=== PATIENT | female | born 1935 ===

== ENCOUNTER 2021-07-16 04:19 | Inpatient (IN) | payer BC, OTHER ==
[~2021-07-16] VITALS: Ht 157.4 cm; Wt 75.8 kg
[2021-07-16] VITALS (8 sets, daily range): BP systolic 109–142; BP diastolic 56–81
[2021-07-16] MEDS ORDERED: meTOprolol 5 MG/5 ML (LOPRESSOR) VIAL IV STA (04:35)
--- NOTE | 2021-07-16 04:43 | ED Dyspnea ---
General Chief Complaint: Respiratory Problems Stated Complaint: HIGH BP Source of Information: Patient, EMS, Family Exam Limitations: Language Barrier (patient's daughter translating) History of Present Illness Date Seen by Provider: Jul 16, 2021 Time Seen by Provider: 04:22 Initial Comments 85 yo female presenting with EMS due to shortness of breath. She is visiting her daughter and she usually lives in [place]. She has a history of diabetes, high blood pressure, high cholesterol. Daughter denies any hx of heart attack or heart problems and no hx of heart failure or fluid on her lungs. She had gotten up to go to the bathroom and then was feeling more short of breath and had tightness in her chest. EMS was called and they felt she had elevated blood pressure as well as sounded like she had fluid on her lungs. She was wheezing some as well so given breathing treatment and a dose of Lasix 40 mg IV. She was feeling like she was breathing better on arrival to the ED. She has some swelling to her legs bilaterally. She had extended car ride 2 weeks ago to travel down to [place]. Timing/Duration: 1-3 Hours Severity: Moderate Activities at Onset: Activity Prior Episodes/Possible Cause: No Prior Episodes Modifying Factors: Worse With Activity; Improves With Albuterol Nebulizer; Worse With Lying Down; Improves With Oxygen Associated Symptoms: Anxiety, Chest Pain (tightness in chest), Cough (dry), Edema, Fever, Insomnia, Lightheadedness, Loss of Appetite, Pain, Weakness, Wheezing Allergies and Home Medications Allergies Coded Allergies: No Known Drug Allergies (Unverified , 07/16/21) Patient Home Medication List Home Medication List Reviewed: Yes Review of Systems Review of Systems Constitutional: No chills, No fever EENTM: no symptoms reported Respiratory: see HPI, cough (dry cough that started tonight) Cardiovascular: see HPI Gastrointestinal: No nausea, No vomiting Genitourinary: no symptoms reported Musculoskeletal: no symptoms reported Skin: no symptoms reported Psychiatric/Neurological: Anxiety Past Ywlveko-Vllcjb-Usbgpw Hx Patient Social History Tobacco Use?: No Past Medical History Surgery/Hospitalization HX: Hypertension, quh-unpqpgx-zyyrkwofl diabetes, hypercholesterolemia, chronic back pain/muscle spasms Physical Exam Vital Signs Vital Signs - First Documented 07/16/21 04:19 Temp 36.9 Pulse 115 Resp 31 B/P (MAP) 175/88 (117) Pulse Ox 100 O2 Delivery Nasal Cannula O2 Flow Rate 6.00 Capillary Refill : Height, Weight, BMI Height: '" Weight: lbs. oz. 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 Norm as Tested Skin: Normal Color, Warm/Dry Progress/Results/Core Measures Results/Orders Lab Results Laboratory Tests Test 07/16/21 04:32 07/16/21 06:27 07/16/21 07:28 Range/Units White Blood Count 9.5 4.3-11.0 10^3/uL Red Blood Count 3.99 3.80-5.11 10^6/uL Hemoglobin 11.7 11.5-16.0 g/dL Hematocrit 36 35-52 % Mean Corpuscular Volume 90 80-99 fL Mean Corpuscular Hemoglobin 29 25-34 pg Mean Corpuscular Hemoglobin Concent 33 32-36 g/dL Red Cell Distribution Width 13.2 10.0-14.5 % Platelet Count 291 130-400 10^3/uL Mean Platelet Volume 10.1 9.0-12.2 fL Immature Granulocyte % (Auto) 0 % Neutrophils (%) (Auto) 41 L 42-75 % Lymphocytes (%) (Auto) 43 12-44 % Monocytes (%) (Auto) 11 0-12 % Eosinophils (%) (Auto) 4 0-10 % Basophils (%) (Auto) 0 0-10 % Neutrophils # (Auto) 3.9 1.8-7.8 10^3/uL Lymphocytes # (Auto) 4.1 H 1.0-4.0 10^3/uL Monocytes # (Auto) 1.0 0.0-1.0 10^3/uL Eosinophils # (Auto) 0.4 H 0.0-0.3 10^3/uL Basophils # (Auto) 0.0 0.0-0.1 10^3/uL Immature Granulocyte # (Auto) 0.0 0.0-0.1 10^3/uL Prothrombin Time 11.8 L 12.2-14.7 SEC INR Comment 0.8 0.8-1.4 Activated Partial Thromboplast Time 26 24-35 SEC D-Dimer 0.65 H 0.00-0.49 UG/ML Sodium Level 140 135-145 MMOL/L Potassium Level 4.1 3.6-5.0 MMOL/L Chloride Level 103 98-107 MMOL/L Carbon Dioxide Level 21 21-32 MMOL/L Anion Gap 16 H 5-14 MMOL/L Blood Urea Nitrogen 21 H 7-18 MG/DL Creatinine 0.96 0.60-1.30 MG/DL Estimat Glomerular Filtration Rate 58 BUN/Creatinine Ratio 22 Glucose Level 234 H 70-105 MG/DL Calcium Level 9.1 8.5-10.1 MG/DL Corrected Calcium 9.1 8.5-10.1 MG/DL Magnesium Level 1.2 L 1.6-2.4 MG/DL Total Bilirubin 0.3 0.1-1.0 MG/DL Aspartate Amino Transf (AST/SGOT) 22 5-34 U/L Alanine Aminotransferase (ALT/SGPT) 17 0-55 U/L Alkaline Phosphatase 56 40-136 U/L Myoglobin 41.5 10.0-92.0 NG/ML Troponin I < 0.30 0.51 *H <0.30 NG/ML Pro-B-Type Natriuretic Peptide 897.8 H <75.0 PG/ML Total Protein 7.2 6.4-8.2 GM/DL Albumin 4.0 3.2-4.5 GM/DL Urine Color PALE YELLOW Urine Clarity CLEAR Urine pH 6.0 5-9 Urine Specific [place] <=1.005 1.016-1.022 Urine Protein NEGATIVE NEGATIVE Urine Glucose (UA) NEGATIVE NEGATIVE Urine Ketones NEGATIVE NEGATIVE Urine Nitrite NEGATIVE NEGATIVE Urine Bilirubin NEGATIVE NEGATIVE Urine Urobilinogen 0.2 < = 1.0 MG/DL Urine Leukocyte Esterase NEGATIVE NEGATIVE Urine RBC (Auto) NEGATIVE NEGATIVE Urine RBC NONE /HPF Urine WBC NONE /HPF Urine Squamous Epithelial Cells RARE /HPF Urine Crystals NONE /LPF Urine Bacteria NEGATIVE /HPF Urine Casts NONE /LPF Urine Mucus NEGATIVE /LPF Urine Culture Indicated NO My Orders Orders - ENYART,CATHERINE E MD Cbc With Automated Diff (07/16/21 04:34) Magnesium (07/16/21 04:34) Chest 1 View Ap/Pa Only (07/16/21 04:34) Ekg Tracing (07/16/21 04:34) Comprehensive Metabolic Panel (07/16/21 04:34) Myoglobin Serum (07/16/21 04:34) Protime With Inr (07/16/21 04:34) Partial Thromboplastin Time (07/16/21 04:34) O2 (07/16/21 04:34) Monitor-Rhythm Ecg Trace Only (07/16/21 04:34) Ed Iv/Invasive Line Start (07/16/21 04:34) Troponin I Fs (07/16/21 04:34) Probnp Fs (07/16/21 04:34) Ua Culture If Indicated (07/16/21 04:34) Metoprolol Tartrate Injection (Lopressor (07/16/21 04:35) Magnesium 1 Gm/100 Ml Ivpb (Magnesium Sifuentes (07/16/21 05:57) Troponin I Fs (07/16/21 06:30) Fibrin Degradation Products (07/16/21 06:38) Aspirin Chewable Tablet (Baby Aspirin Ch (07/16/21 07:14) Enoxaparin Injection (Lovenox Injectio (07/16/21 07:36) Ct Angio Chest W (07/16/21 07:45) Iohexol Injection (Omnipaque 350 Mg/Ml 1 (07/16/21 07:45) Received Contrast (Hold Metformin- Contr (07/16/21 07:45) Sodium Chloride Flush (Catheter Flush Sy (07/16/21 07:45) Ns (Ivpb) (Sodium Chloride 0.9% Ivpb Bag (07/16/21 07:45) Vital Signs/I&O 07/16/21 04:19 Temp 36.9 Pulse 115 Resp 31 B/P (MAP) 175/88 (117) Pulse Ox 100 O2 Delivery Nasal Cannula O2 Flow Rate 6.00 Progress Progress Note #1: Progress Note Order electrocardiogram, chest x-ray, labs including cardiac enzymes. For her hypertension and tachycardia give a single dose of metoprolol 5 mg IV x1. Progress Note #2: Progress Note Labs show stable CBC without acute significant abnormality. ECG shows sinus tachycardia with Left bundle branch block. Chemistry shows elevated proBNP with normal Troponin. She does have low mag at 1.2 so will supplement this. It appears her CXR shows increased pulmonary vascular congestion on my review of her 1 view CXR. She does not have an acute infiltrate. With report of sudden onset will obtain CT scan of chest with IV contrast to eval for PE and plan to repeat Troponin to ensure it is not increasing. If CT angiogram of chest negative and repeat Troponin not changing as well as pt remaining stable then she may need to be started on diuretic and eventually have echocardiogram to ealuate EF. if finding for PE or has elevating troponin then she would need admit for cardiology eval and further treatment prior to discharge home. Progress Note #3: Progress Note After ordering the CT angio and discussing with the patient and family the findings and plan, the CT scanner was having technical difficulties and the scan was not able to be performed immediately. IT was contacted. In the meantime a D-dimer was added to help screen for a DVT or PE. Also the repeat troponin was in process as well. Progress Note #4: Time: 06:55 Progress Note Repeat troponin came back elevated at 0.51. The D-dimer came back elevated at 0.65. Updated the patient and family and advised them that she would need to be admitted for further evaluation and treatment. With those enzymes going up it looks like she had some findings for heart damage and possible blockages with her heart. She also was having some findings for some heart failure and an echocardiogram or ultrasound of her heart could be performed to help evaluate that further. We will order a dose of aspirin and check with the hospitalist a nd cardiology about admission and further orders. [address] Rey and he accepted the patient for admission to the hospitalist service. He requested a cardiac stepdown bed and to check with Dr. Fagan with cardiology about management of the non-STEMI and left bundle branch block. [address] Fagan for cardiology and he advised administering a 1 mg/kg dose of Lovenox for therapeutic anticoagulation while pending transfer and further evaluation with [place]. Patient is continuing to receive magnesium supplementation since her magnesium was down to 1.2. Initial ECG Impression Date: Jul 16, 2021 Initial ECG Impression Time: 04:29 Initial ECG Rate: 108 Initial ECG Rhythm: S.Tach Initial ECG Comparisson: No Previous ECG Available Comment Sinus tachycardia with a heart rate of 108 bpm. RI interval 136 ms. Atrial premature complexes. Left bundle branch block. No acute ST elevation. QT interval 359 ms with a QTc interval 481 ms. No prior tracing available for comparison. Diagnostic Imaging Diagonstic Imaging: Xray Plain Films/CT/US/NM/MRI: chest Comments On my review of her 1 view chest x-ray she has increased pulmonary vascular con gestion without infiltrate. There is also cardiomegaly. [facility] [place], [place] NAME: YAN PETE [facility] REC#: [id number] PT STATUS: REG ER : 1935 PHYSICIAN: CATHERINE ONEILL MD ADMIT DATE: 07/16/21/ER FS Signed Date of Exam:07/16/21 CHEST 1 VIEW AP/PA ONLY EXAMINATION: Chest 1 view HISTORY: Shortness of breath. Hypertension. COMPARISON: None available. FINDINGS: There is cardiomegaly with central pulmonary vascular congestion. Patchy opacities are seen in the bilateral lung bases. No large pleural effusion or pneumothorax. No acute osseous abnormalities. IMPRESSION: 1. Cardiomegaly with central pulmonary vascular congestion. 2. Patchy bibasilar opacities which may represent atelectasis, edema, and/or infection. Dictated by: Dictated on workstation # [id number] Dict: 07/16/2113 Trans: 07/16/2114 [id number] Interpreted by: MACK HEAD DO Electronically signed by: MACK HEAD DO 07/16/21 0614 Reviewed: Reviewed by Me Departure Communication (Admissions) Time/Spoke to Admitting Phy: 07:[address] Rey and he accepted for the hospitalist service for non-S DONALD to the cardiac stepdown unit. He did request cardiology be consulted for the patient as well. Time/Spoke to Consulting Phy: 07:[address] Fagan for cardiology and he was made aware of the admit to the hospitalist service. He requested Lovenox at a therapeutic 1 mg/kg dose while being transferred and was in agreement with the aspirin that she had already been dosed with. Impression Primary Impression: Non-ST elevated myocardial infarction Additional Impressions: Dyspnea Qualified Codes: R06.02 - Shortness of breath Hypertension Qualified Codes: I10 - Essential (primary) hypertension Left bundle branch block (LBBB) on electrocardiogram Hypomagnesemia Elevated d-dimer Disposition: 30 STILL A PATIENT Condition: Stable Admissions Decision to Admit Reason: Admit from ER (General) Decision to Admit/Date: Jul 16, 2021 Time/Decision to Admit Time: 07:25 Departure-Patient Inst. Referrals: NO,LOCAL PHYSICIAN (PCP/Family) Primary Care Physician CATHERINE ONEILL MD Jul 16, 2021 04:43
[2021-07-16 04:49] LABS: BASOPHILS % (AUTO) 0 % (0-10); EOSINOPHILS # (AUTO) 0.4 10^3/uL (0.0-0.3); EOSINOPHILS % (AUTO) 4 % (0-10); HEMATOCRIT 36 % (35-52); HEMOGLOBIN 11.7 g/dL (11.5-16.0); LYMPHOCYTES # (AUTO) 4.1 10^3/uL (1.0-4.0); LYMPHOCYTES % (AUTO) 43 % (12-44); MEAN CORPUSCULAR HEMOGLOBIN 29 pg (25-34); MEAN CORPUSCULAR HGB CONC 33 g/dL (32-36); MEAN CORPUSCULAR VOLUME 90 fL (80-99); MEAN PLATELET VOLUME 10.1 fL (9.0-12.2); MONOCYTES % (AUTO) 11 % (0-12); NEUTROPHILS # (AUTO) 3.9 10^3/uL (1.8-7.8); NEUTROPHILS % (AUTO) 41 % (42-75); PLATELET COUNT 291 10^3/uL (130-400); WHITE BLOOD COUNT 9.5 10^3/uL (4.3-11.0)
[2021-07-16 04:53] LABS: INR 0.8 (0.8-1.4); PROTHROMBIN TIME PATIENT 11.8 SEC (12.2-14.7)
[2021-07-16 05:15] LABS: BILIRUBIN,TOTAL 0.3 MG/DL (0.1-1.0); CALCIUM 9.1 MG/DL (8.5-10.1); CREATININE SERUM 0.96 MG/DL (0.60-1.30); MAGNESIUM 1.2 MG/DL (1.6-2.4); POTASSIUM 4.1 MMOL/L (3.6-5.0)
[2021-07-16 05:16] LABS: TOTAL PROTEIN 7.2 GM/DL (6.4-8.2)
[2021-07-16] MEDS ORDERED: MAGNESIUM 1 GM/100 ML IVPB 100 ML IV STA (05:57)
--- NOTE | 2021-07-16 06:15 | Diagnostic Imaging Report ---
EXAMINATION: Chest 1 view HISTORY: Shortness of breath. Hypertension. COMPARISON: None available. FINDINGS: There is cardiomegaly with central pulmonary vascular congestion. Patchy opacities are seen in the bilateral lung bases. No large pleural effusion or pneumothorax. No acute osseous abnormalities. IMPRESSION: 1. Cardiomegaly with central pulmonary vascular congestion. 2. Patchy bibasilar opacities which may represent atelectasis, edema, and/or infection. Dictated by: Dictated on workstation # [id number]
[2021-07-16] MEDS ORDERED: ASPIRIN 81 MG CHEW (CHILDREN'S ASA) PO STA (07:14)
[2021-07-16 07:33] LABS: BILIRUBIN,URINE NEGATIVE (NEGATIVE); CLARITY,URINE CLEAR; GLUCOSE, URINE (UA) NEGATIVE (NEGATIVE); KETONES,URINE NEGATIVE (NEGATIVE); LEUKOCYTE ESTERASE ,URINE NEGATIVE (NEGATIVE); NITRITE,URINE NEGATIVE (NEGATIVE); PROTEIN,URINE NEGATIVE (NEGATIVE)
[2021-07-16] MEDS ORDERED: ENOXAPARIN 80 MG/0.8 ML (LOVENOX) SYR SC STA (07:36)
[2021-07-16 07:37] LABS: COLOR,URINE PALE YELLOW
[2021-07-16 07:38] LABS: BACTERIA,URINE NEGATIVE /HPF; SQUAMOUS EPITHELIAL CELL,UR RARE /HPF
[2021-07-16] MEDS ORDERED: NS 100 ML (IVPB) BAG IV ONE (07:45)
[2021-07-16] MEDS ORDERED: IOHEXOL 350 MG/ML 100 ML (OMNIPAQUE 350) VIAL IV ONE (07:45)
[2021-07-16] MEDS ORDERED: CATHETER FLUSH 10 ML SYR IV PRN ×3 (07:45→13:15)
[2021-07-16] MEDS ORDERED: HOLD METFORMIN - RECEIVED CONTRAST 20 ML VIAL IV SCH (07:45)
--- NOTE | 2021-07-16 08:22 | Diagnostic Imaging Report ---
INDICATION: Shortness of breath and elevated D-dimer. TECHNIQUE: Multiple contiguous axial images were obtained through the chest after uneventful bolus administration of intravenous contrast. 3D reconstructed CTA MIP acquisitions were also performed. Auto Exposure Controls were utilized during the CT exam to meet ALARA standards for radiation dose reduction. There is no prior study for comparison The pulmonary parenchymal vessels are well-opacified with no CT evidence of pulmonary emboli. Thoracic aorta shows no evidence of aneurysm or dissection. There is cardiomegaly. There are no enlarged mediastinal or hilar nodes. There are no enlarged axillary nodes. There is a small right pleural effusion and minimal left pleural effusion. There is some motion artifact in the lung bases. Lung parenchymal windows demonstrated some motion artifact inferiorly. There is no discrete consolidation or mass. IMPRESSION: Cardiomegaly. Small right pleural effusion and minimal left pleural effusion. No CT evidence of pulmonary emboli or acute aortic pathology. Imaging of the lungs is motion limited but no definite pulmonary lesion is seen. Dictated by: Dictated on workstation # [id number]
[2021-07-16] MEDS ORDERED: hydrALAZINE (APESOLINE) 20 MG/ML VIAL IV PRN (10:00)
[2021-07-16] MEDS ORDERED: ENOXAPARIN 80 MG/0.8 ML (LOVENOX) SYR SC SCH ×2 (10:00→20:00)
[2021-07-16] MEDS ORDERED: ONDANSETRON 4 MG/2 ML (SDV) Z0FRAN IVP PRN (10:00)
[2021-07-16] MEDS ORDERED: NITROGLYCERIN 0.4 MG SL TABS BTL 25'S SL PRN (10:00)
[2021-07-16] MEDS ORDERED: morphine INJ 4 MG/ML 1 ML (VIAL/SYRINGE) IV PRN (10:00)
[2021-07-16] MEDS ORDERED: BACLOFEN 10 MG (LIORESAL) TAB PO PRN (10:00)
[2021-07-16] MEDS: CATHETER FLUSH 10 ML SYR IV SCH ×2 (10:55→20:34)
--- NOTE | 2021-07-16 11:53 | Diagnostic Imaging Report ---
PROCEDURE: US Venous Lower Ext Alex. TECHNIQUE: Multiple real-time grayscale images were obtained over the lower extremities in various projections, bilaterally. Additional duplex Doppler and color Doppler images were also obtained. INDICATION: Elevated D-dimer with leg pain. FINDINGS: Color Doppler imaging shows normal blood flow throughout the venous system from the common femoral vein to the ankle bilaterally. Calf compression shows normal augmentation of flow. IMPRESSION: No evidence of venous thrombosis. There is incidentally noted a popliteal cyst on the left measuring approximately 5 x 3 x 2 cm. Dictated by: Dictated on workstation # [id number]
--- NOTE | 2021-07-16 13:02 | Consultation-Cardiology ---
HPI-Cardiology Cardiology Consultation Date of Consultation 07/16/21 Date of Admission Time Seen by Provider: 12:54 Indication: Chest Pain HPI Patient is an 85 year old female with a past medical history of hypertension, diabetes mellitus, and hyperlipidemia who is being admitted from [place] [facility] with a chief complaint of shortness of breath and chest pain. Patient is from [place], [place] but is visiting family in [place]. Patient and her son drove here two weeks ago and were planning on leaving this coming 07/20/21. Patient states that the shortness of breath and chest tightness began around 0230 after she got out of bed to go to the bathroom. She describes the chest tightness as a substernal tightness that didn't radiate. Her dyspnea progressed to the point where she called her daughter who decided to get her to the ER. Daughter checked the BP at home and it was elevated at 160's/100's. Patient denied headache, dizziness, syncopal epsiode, popliteal pain. At [place] ER patient was given Lasix 40mg, breathing treatments, metoprolol, magnesium supplementation, and placed on 6L O2 Nasal Cannula. Patient was given aspirin and Lovenox 1mg/kg every 12 hours upon arrival at [facility]. Patient states her chest tightness is much better and that overall she is feeling much better. Patient is currently on room air. She states she is still having some dyspena but that it is much improved. Chest x-ray shows cardiomegaly with central pulmonary vascular congestion. Chest Thoracic angiogram was negative for pulmonary embolism. Patient's initial troponin was negative, repeat troponin was 0.51, second repeat was 1.296. BNP was 897.8. D-dimer was elevated at 0.65 but peripheral doppler was negative for deep vein thrombosis. Patient had a left bundle branch block on EKG. There is no previous study to compare to. Patient states she has no significant cardiac history and that her chronic conditions are managed by Dr. Matos in [place], [place]. Upon contacting Dr. Matos's office they stated they had no previous EKG studies. Home Medications & Allergies Allergies: Coded Allergies: No Known Drug Allergies (Unverified , 07/16/21) [id number] Hx Patient Social History Have you traveled recently?: No Alcohol Use?: No Review of Systems-General Review of Systems Constitutional: No chills, No fever EENTM: no symptoms reported; No blurred vision, No double vision, No vision loss Respiratory: cough, short of breath Cardiovascular: see HPI, chest pain (during episode, now resolved); No Hx of Intervention, No palpitations, No syncope Gastrointestinal: No heartburn, No nausea, No vomiting Reviewed Test Results Reviewed Test Results Lab Laboratory Tests Test 07/16/21 04:32 07/16/21 06:27 07/16/21 07:28 07/16/21 11:07 Range/Units White Blood Count 9.5 4.3-11.0 10^3/uL Red Blood Count 3.99 3.80-5.11 10^6/uL Hemoglobin 11.7 11.5-16.0 g/dL Hematocrit 36 35-52 % Mean Corpuscular Volume 90 80-99 fL Mean Corpuscular Hemoglobin 29 25-34 pg Mean Corpuscular Hemoglobin Concent 33 32-36 g/dL Red Cell Distribution Width 13.2 10.0-14.5 % Platelet Count 291 130-400 10^3/uL Mean Platelet Volume 10.1 9.0-12.2 fL Immature Granulocyte % (Auto) 0 % Neutrophils (%) (Auto) 41 L 42-75 % Lymphocytes (%) (Auto) 43 12-44 % Monocytes (%) (Auto) 11 0-12 % Eosinophils (%) (Auto) 4 0-10 % Basophils (%) (Auto) 0 0-10 % Neutrophils # (Auto) 3.9 1.8-7.8 10^3/uL Lymphocytes # (Auto) 4.1 H 1.0-4.0 10^3/uL Monocytes # (Auto) 1.0 0.0-1.0 10^3/uL Eosinophils # (Auto) 0.4 H 0.0-0.3 10^3/uL Basophils # (Auto) 0.0 0.0-0.1 10^3/uL Immature Granulocyte # (Auto) 0.0 0.0-0.1 10^3/uL Prothrombin Time 11.8 L 12.2-14.7 SEC INR Comment 0.8 0.8-1.4 Activated Partial Thromboplast Time 26 24-35 SEC D-Dimer 0.65 H 0.00-0.49 UG/ML Sodium Level 140 135-145 MMOL/L Potassium Level 4.1 3.6-5.0 MMOL/L Chloride Level 103 98-107 MMOL/L Carbon Dioxide Level 21 21-32 MMOL/L Anion Gap 16 H 5-14 MMOL/L Blood Urea Nitrogen 21 H 7-18 MG/DL Creatinine 0.96 0.60-1.30 MG/DL Estimat Glomerular Filtration Rate 58 BUN/Creatinine Ratio 22 Glucose Level 234 H 70-105 MG/DL Calcium Level 9.1 8.5-10.1 MG/DL Corrected Calcium 9.1 8.5-10.1 MG/DL Magnesium Level 1.2 L 1.6-2.4 MG/DL Total Bilirubin 0.3 0.1-1.0 MG/DL Aspartate Amino Transf (AST/SGOT) 22 5-34 U/L Alanine Aminotransferase (ALT/SGPT) 17 0-55 U/L Alkaline Phosphatase 56 40-136 U/L Myoglobin 41.5 127.3 H 10.0-92.0 NG/ML Troponin I < 0.30 0.51 *H 1.296 *H <0.028 NG/ML Pro-B-Type Natriuretic Peptide 897.8 H <75.0 PG/ML Total Protein 7.2 6.4-8.2 GM/DL Albumin 4.0 3.2-4.5 GM/DL Urine Color PALE YELLOW Urine Clarity CLEAR Urine pH 6.0 5-9 Urine Specific [place] <=1.005 1.016-1.022 Urine Protein NEGATIVE NEGATIVE Urine Glucose (UA) NEGATIVE NEGATIVE Urine Ketones NEGATIVE NEGATIVE Urine Nitrite NEGATIVE NEGATIVE Urine Bilirubin NEGATIVE NEGATIVE Urine Urobilinogen 0.2 < = 1.0 MG/DL Urine Leukocyte Esterase NEGATIVE NEGATIVE Urine RBC (Auto) NEGATIVE NEGATIVE Urine RBC NONE /HPF Urine WBC NONE /HPF Urine Squamous Epithelial Cells RARE /HPF Urine Crystals NONE /LPF Urine Bacteria NEGATIVE /HPF Urine Casts NONE /LPF Urine Mucus NEGATIVE /LPF Urine Culture Indicated NO Test 07/16/21 11:34 Range/Units Glucometer 142 H 70-110 MG/DL Physical Exam Physical Exam Vital Signs Vital Signs - First Documented 07/16/21 07/16/21 04:19 11:39 Temp 36.9 Pulse 115 Resp 31 B/P (MAP) 175/88 (117) Pulse Ox 100 O2 Delivery Nasal Cannula O2 Flow Rate 6.00 FiO2 21 Capillary Refill : Less Than 3 Seconds Height, Weight, BMI Height: '" Weight: lbs. oz. kg; 27.00 BMI Method: General Appearance: No Apparent Distress, WD/WN HEENT: PERRL/EOMI Neck: Full Range of Motion, Normal Inspection, Non Tender, Supple Respiratory: Chest Non Tender, No Accessory Muscle Use, No Respiratory Distress, Decreased Breath Sounds, Rales (Bilateral bases) Cardiovascular: Regular Rate, Rhythm, No Murmur, Normal Peripheral Pulses Gastrointestinal: Normal Bowel Sounds, No Pulsatile Mass, Non Tender, Soft Rectal: Deferred Extremity: Normal Capillary Refill, Non Tender, No Calf Tenderness; No Calf Tenderness, No Inflammation; Pedal Edema (1+ bilateral pitting edema in bilateral lower extremities) Neurologic/Psychiatric: Alert, Oriented x3, Normal Mood/Affect Skin: Normal Color, Warm/Dry A/P-Cardiology Admission Diagnosis Congestive heart failure non-ST segment elevation myocardial infarction Hypertension Diabetes Mellitus Hyperlipidemia Assessment/Plan Non ST-segment elevation myocardial infarction Started on aspirin and lovenox Echocardiogram shows EF of 25% with moderate mitral regurgitation Planning on heart cath later today Congestive Heart Failure Patient given IV Lasix 40mg and breathing treatments at [place] Currently on room air with O2 98% Continue to monitor urine output Hypertension Patient started on lisinopril and hydrazaline continue to monitor Hyperlipidemia Patient started on atorvastatin Continue to monitor Diabetes Mellitus Home medication regimen unknown, managed by medical team. The patient was seen and examined by Maximo as outlined above. I also interviewed and examined the patient. Subjective: She is a pleasant 85-year-old female who is here visiting family. She normally resides in [place]. 2 weeks ago she drove from [place] to [place]. Last evening she woke up to use the bathroom and developed severe, sudden shortness of breath associated with tightness. Her daughter heard her breathing heavily and went to check on her. She thought that the symptoms could be due to acid reflux so she gave her mother a drink of Sprite. However, her chest tightness and dyspnea persisted. Her daughter then called her niece who is a physician who recommended they call 911. The patient was brought to [place] emergency room early this morning. She was felt to be in pulmonary edema but later was found to have an elevated troponin level. She was subsequently transferred to [facility] in [place], [place] for further treatment and evaluation. In the outside emergency room she was given intravenous Lasix and her shortness of breath and chest tightness resolved. She was also administered aspirin and 1 dose of enoxaparin. This afternoon her breathing and chest discomfort were still improved. However, her troponin level has risen. General: Alert. No acute distress. Well nourished and appears stated age. Eye: Extraocular movements are intact. Conjunctivae are clear. There are no xanthelasma. HENT: Normocephalic. Atraumatic. Carotid pulsations 2/2 without bruits. Neck: Jugular venous pressure does not appear elevated. No thyromegaly appreciated. Respiratory: Lungs are clear to auscultation. Respirations are non-labored. Breath sounds are equal. Symmetrical chest wall expansion. Cardiovascular: Normal rate. Regular rhythm. No murmur. No gallop. Point of maximal impulse is not appear displaced. Good pulses equal in all extremities. No edema. Gastrointestinal: Soft. Normal bowel sounds. Skin: Skin turgor is normal. There is no pallor. Musculoskeletal: No kyphosis or scoliosis appreciated. Neurologic: Alert and oriented to person, place, time. Cranial nerves 3-12 appear grossly intact. The patient has good motor tone strength in the upper and lower extremities bilaterally. Psychiatric: Cooperative. Appropriate mood & affect. Echocardiogram (07/16/2021): 1. Left ventricle: The cavity size is normal. There is moderate concentric hypertrophy. Systolic function is severely reduced. The estimated ejection fr action is 20-25%. There is severe global hypokinesis. Doppler parameters are consistent with abnormal left ventricular relaxation (grade 1 diastolic dysfunction). 2. Right ventricle: The cavity size is normal. Systolic function is mildly reduced. TAPSE 1.3 cm. 3. Mitral valve: There is moderate regurgitation. 4. Aortic valve: There is mild regurgitation. 5. 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 6. Pulmonary arteries: The pulmonary artery pressure cannot be estimated on this study due to inadequate tricuspid regurgitant envelope. Electrocardiogram: Sinus rhythm with left bundle branch block. Impression: 1. Non-ST elevation myocardial infarction. The patient appears to be a non-ST elevation myocardial infarction. She did also have an elevated D-dimer but underwent a CT angiogram of the chest that did not show any evidence of pulmonary embolism. Her symptoms are improved but the troponin level is rising. As such, I recommend further evaluation with a cardiac catheterization. I have explained the benefits and risks of the procedure to the patient and her family and all are in agreement to proceed. 2. Cardiomyopathy. Exact etiology unclear. In light of the non-ST elevation myocardial infarction, this is certainly concerning for ischemic cardiomyopathy. This does not have the normal appearance of Takotsubo cardiomyopathy although echocardiography is not the test of choice for diagnosing this condition. Nonetheless, she will be placed on the usual guideline directed medical therapy and we will proceed with the cardiac catheterization. 3. Acute heart failure with preserved ejection fraction. Her symptoms have already improved with intravenous Lasix. We will place her on the appropriate guideline directed medical therapy as tolerated by her blood pressure and renal function. 4. Essential hypertension. We will resume outpatient antihypertensive medi cation. 5. Mixed hyperlipidemia. Resume statin medication. Certain portions of this document may have been dictated utilizing voice recognition technology. Inherent to this technology, typographical and grammatical errors may exist. As much as I am diligent to identify and correct these mistakes, some errors may remain in the document. Supervisory-Addendum Brief Verification & Attestation Participated in pt care: history, physical Personally performed: exam, history, MDM, supervision of care Care discussed with: Medical Student Procedures: n/a Results interpretation: Verified all documentation Verification and Attestation of Medical Student E/M Service A medical student performed and documented this service in my presence. I reviewed and verified all information documented by the medical student and made modifications to such information, when appropriate. I personally performed the physical exam and medical decision making. Ralf Fagan JR, MD, Jul 16, 2021,15:00 MAXIMO NOLASCO Jul 16, 2021 13:02 RALF FAGAN JR, MD Jul 16, 2021 14:56
[2021-07-16] MEDS ORDERED: RT-ALBUTEROL/IPRATROPIUM 3 ML (DUONEB) VIAL INH PRN (13:15)
[2021-07-16] MEDS ORDERED: NS IV 1000 ML 1,000 ML IV ONE (13:15)
--- NOTE | 2021-07-16 14:20 | History & Physical ---
JAKOB CHA 07/16/21 1420: History of Present Illness History of Present Illness Reason for visit/HPI Patient is a 85yo female w/PMH of HTN, HLD, T2DM who arrived today via EMS from the [facility]. She presented with shortness of breath and tightness in her chest/neck area that started around 230am when she got up to use the restroom. She denies having any sweats, syncope or chest pain during the episode. She has never had symptoms like this before. Patient had a 12hr drive to [place] from [place] 2 weeks ago. At [facility] patient was given Lasix 40mg, breathing treatments, metoprolol, magnesium supplementation, and placed on 6L O2 Nasal Cannula. Patient was given aspirin and Lovenox 1mg/kg every 12 hours upon arrival at [facility]. Chest x-ray showed cardiomegaly with central pulmonary vascular congestion. CT angio was negative for pulmonary embolism. Patient's initial troponin was negative, repeat troponin was 0.51, second repeat was 1.296. BNP was 897.8. D- dimer was elevated at 0.65 but peripheral doppler was negative for deep vein thrombosis. Patient had a left bundle branch block on EKG. There is no previous study to compare to. Patient states she has no significant cardiac history and that her chronic conditions are managed by Dr. Matos in [place], [place]. Date of Admission Jul 16, 2021 at 09:00 Date Seen by a Provider: Jul 16, 2021 Time Seen by a Provider: 09:30 I consulted on this patient on 07/16/21 14:13 Attending Physician Dorys Yusuf MD Admitting Physician No,Local Physician Consult Allergies and Home Medications Allergies Coded Allergies: No Known Drug Allergies (Unverified , 07/16/21) Patient Home Medication List Chlorthalidone (Chlorthalidone) 25 Mg Tablet, 12.5 MG PO 1300 AFTER LUNCH, (Reported) Entered as Reported by: FLOWER AGUIRRE on 07/16/211517 Last Action: Reviewed Cholecalciferol (Vitamin D3) (Vitamin D3) 25 Mcg Tablet, 25 MCG PO DAILY, (Reported) Entered as Reported by: FLOWER AGUIRRE on 07/16/211517 Last Action: Reviewed Glipizide (Glipizide) 5 Mg Tablet, 2.5 MG PO DAILY, (Reported) Entered as Reported by: FLOWER AGUIRRE on 07/16/211517 Last Action: Reviewed Lisinopril (Lisinopril) 20 Mg Tablet, 40 MG PO 1300 AFTER LUNCH, (Reported) Entered as Reported by: FLOWER AGUIRRE on 07/16/211517 Last Action: Reviewed Metformin HCl (Metformin HCl ER) 500 Mg Tab.er.24h, 500 MG PO BID WITH MEALS, (Reported) Entered as Reported by: FLOWER AGUIRRE on 07/16/211517 Last Action: Reviewed Simvastatin (Simvastatin) 10 Mg Tablet, 10 MG PO DAILY, (Reported) Entered as Reported by: FLOWER AGUIRRE on 07/16/211517 Last Action: Reviewed Past Unweuay-Zuhpjq-Wfeeql Hx Patient Social History Tobacco Use?: No Substance use?: No Alcohol Use?: No Pt feels they are or have been: No Current Status Advance Directives: No Communicates: Verbally Primary Language: Jet Preferred Spoken Language: Jet Is interpretation needed?: Yes Review of Systems Constitutional: No chills, No diaphoresis Respiratory: No cough; short of breath Cardiovascular: No chest pain Gastrointestinal: No abdominal pain, No nausea, No vomiting Physical Exam Vital Signs Vital Signs - First Documented 07/16/21 07/16/21 04:19 11:39 Temp 36.9 Pulse 115 Resp 31 B/P (MAP) 175/88 (117) Pulse Ox 100 O2 Delivery Nasal Cannula O2 Flow Rate 6.00 FiO2 21 Capillary Refill : Less Than 3 Seconds Height, Weight, BMI Height: '" Weight: lbs. oz. kg; 27.00 BMI Method: General Appearance: Obese HEENT: PERRL/EOMI Neck: Normal Inspection Respiratory: Rales (bilateral bases) Cardiovascular: Regular Rate, Rhythm, Normal Peripheral Pulses Gastrointestinal: Normal Bowel Sounds, Non Tender, Soft Back: Normal Inspection Extremity: Normal Inspection, Pedal Edema (1+ pitting edema bilaterally) Neurologic/Psychiatric: Alert, Oriented x3 Skin: Normal Color Assessment/Plan Assessment and Plan NSTEMI, LBBB CHFrEF Hypertension Hyperlipidemia T2DM - Echocardiogram shows EF of 25% with moderate mitral regurgitation - Started on Lovenox, Aspirin, Lipitor and Lisinopril - Received Hydralazine injection, Nitro prn - Cardiology consulted, planning on heart cath today - Patient received 40mg IV Lasix and breathing treatments at [place] [facility] - Monitor input/output - Supplement magnesium - PT/OT tomorrow Admission Diagnosis NSTEMI, LBBB Admission Status: Inpatient Order (span 2 midnights) Reason for Inpatient Admission: Pt needs heart cath and close monitoring afterwards DORYS YUSUF MD 07/16/21 8329: History of Present Illness History of Present Illness Time Seen by a Provider: 10:10 Allergies and Home Medications Allergies Coded Allergies: No Known Drug Allergies (Unverified , 07/16/21) Patient Home Medication List Home Medication List Reviewed: Yes Chlorthalidone (Chlorthalidone) 25 Mg Tablet, 12.5 MG PO 1300 AFTER LUNCH, (Reported) Entered as Reported by: FLOWER AGUIRRE on 07/16/211517 Last Action: Reviewed Cholecalciferol (Vitamin D3) (Vitamin D3) 25 Mcg Tablet, 25 MCG PO DAILY, (Reported) Entered as Reported by: FLOWER AGUIRRE on 07/16/211517 Last Action: Reviewed Glipizide (Glipizide) 5 Mg Tablet, 2.5 MG PO DAILY, (Reported) Entered as Reported by: FLOWER AGUIRRE on 07/16/211517 Last Action: Reviewed Lisinopril (Lisinopril) 20 Mg Tablet, 40 MG PO 1300 AFTER LUNCH, (Reported) Entered as Reported by: FLOWER AGUIRRE on 07/16/211517 Last Action: Reviewed Metformin HCl (Metformin HCl ER) 500 Mg Tab.er.24h, 500 MG PO BID WITH MEALS, (Reported) Entered as Reported by: FLOWER AGUIRRE on 07/16/211517 Last Action: Reviewed Simvastatin (Simvastatin) 10 Mg Tablet, 10 MG PO DAILY, (Reported) Entered as Reported by: FLOWER AGUIRRE on 07/16/211517 Last Action: Reviewed Past Craopnp-Gjkxgp-Gsvppz Hx Past Medical History High Cholesterol, Hypertension Diabetes, Non-Insulin dep Family Medical History No Pertinent Family Hx Physical Exam General Appearance: No Apparent Distress, Obese HEENT: PERRL/EOMI, Pharynx Normal Neck: Normal Inspection, Supple Respiratory: Lungs Clear, Normal Breath Sounds, No Respiratory Distress Cardiovascular: Regular Rate, Rhythm, No Murmur Gastrointestinal: Normal Bowel Sounds, Non Tender, Soft Extremity: Normal Inspection, Pedal Edema (1+ pitting edema bilaterally) Neurologic/Psychiatric: Alert, No Motor/Sensory Deficits, Normal Mood/Affect Skin: Normal Color, Warm/Dry Assessment/Plan Assessment and Plan Admitted with NSTEMI. Troponin trending up. Cardiology planning for left heart cath. Echo with reduced EF. Given Lasix for pulmonary edema. Problems: (1) Non-ST elevation myocardial infarction (NSTEMI), initial care episode Status: Acute (2) Left bundle branch block (LBBB) on electrocardiogram Status: Acute (3) Acute systolic heart failure Status: Acute (4) Ischemic cardiomyopathy Status: Acute (5) T2DM (type 2 diabetes mellitus) Status: Chronic Qualifiers: (6) Metabolic syndrome Status: Chronic (7) Obesity Status: Chronic (8) Primary hypertension Status: Chronic (9) Mixed hyperlipidemia Status: Chronic Admission Diagnosis Admission Status: Inpatient Order (span 2 midnights) Reason for Inpatient Admission: NSTEMI requiring left heart cath, new onset heart failure Supervisory-Addendum Brief Verification & Attestation Participated in pt care: history, MDM, physical Personally performed: exam, history, MDM, supervision of care Care discussed with: Medical Student Procedures: n/a Results interpretation: Verified all documentation A medical student performed and documented this service in my presence. I reviewed and verified all information documented by the medical student and made modifications to such information, when appropriate. I personally performed the physical exam and medical decision making. JAKOB CHA Jul 16, 2021 14:20 DORYS YUSUF MD Jul 16, 2021 18:29
[2021-07-16] MEDS ORDERED: LIDOCAINE 1% INJ 50 ML (XYLOCAINE) VIAL ONE (14:35)
[2021-07-16] MEDS ORDERED: HEParin (CATH LAB) 2,000 ML IV ONE (14:35)
[2021-07-16] MEDS ORDERED: NS IV 1000 ML 1,000 ML ONE (14:35)
[2021-07-16] MEDS ORDERED: VERAPAMIL 5 MG/2 ML (CALAN) VIAL IV ONE (14:37)
[2021-07-16] MEDS ORDERED: fentaNYL INJ 100 MCG/2 ML AMP ONE (14:37)
[2021-07-16] MEDS ORDERED: HEParin 1000 UNIT/ML (10ML VIAL) FOR BOLUS ONE (14:38)
[2021-07-16] MEDS ORDERED: NITRO DRIP 25000 MCG/D5W 250 ML IV ONE (14:38)
[2021-07-16] MEDS ORDERED: MIDAZOLAM 5 MG/5 ML (VERSED) VIAL ONE (14:38)
[2021-07-16] MEDS ORDERED: LISI20TA26 PO (15:18)
[2021-07-16] MEDS ORDERED: METF-865 PO (15:18)
[2021-07-16] MEDS ORDERED: CHLO25TA22 PO (15:18)
[2021-07-16] MEDS ORDERED: CHOL10004 PO (15:18)
[2021-07-16] MEDS ORDERED: SIMV10TA26 PO (15:18)
[2021-07-16] MEDS ORDERED: GLIP5TAB13 PO (15:18)
--- NOTE | 2021-07-16 15:56 | Pre-Op Note & Conscious Sedat ---
Pre-Operative Progress Note H&P Reviewed The H&P was reviewed, patient examined and no changes noted. Date H&P Reviewed: Jul 16, 2021 Time H&P Reviewed: 15:55 Pre-Op Diagnosis: NSTEMI, cardiomyopathy, and acute systolic heart failure. Conscious Sedation Pre-Proced ASA Score 3 For ASA 3 and 4: Consider anesthesia and medical clearance. Also, for patients with a history of failed moderate sedation consider anesthesia. Airway Lungs Heart ASA score ASA 1: a normal healthy patient ASA 2: a patient with a mild systemic disease (mid diabetes, controlled hy pertension, obesity ASA 3: a patient with a severe systemic disease that limits activity (angina, COPD, prior Myocardial infarction) ASA 4: a patient with an incapacitating disease that is a constant threat to life (CHF, renal failure) ASA 5: a moribund patient not expected to survive 24 hrs. (ruptured aneurysm) ASA 6: a declared brain- patient whose organs are being harvested. For emergent operations, add the letter E after the classification Mallampati Classification Grade 2 Sedation Plan Analgesia, Amnesia, Plan communicated to team members, Discussed options with patient/fam, Discussed risks with patient/fam The patient is an appropriate candidate to undergo the planned procedure, se dation, and anesthesia. The patient immediately re-assessed prior to indication. ANNIKA HERRERA JR, MD Jul 16, 2021 15:56
[2021-07-16] MEDS ORDERED: TICAGRELOR 90 MG TABLET (BRILINTA) PO ONE (16:47)
[2021-07-16] MEDS ORDERED: PATIENT MAY USE OWN MEDS, ALL PO SCH (17:15)
--- NOTE | 2021-07-16 17:25 | Cardiac Cath Report ---
CARDIAC CATHETERIZATION DATE OF PROCEDURE: 07/16/2021 INDICATION: Non-ST elevation myocardial infarction, cardiomyopathy and acute heart failure with reduced ejection fraction. HISTORY: The patient is a 85 year old female with no previously known history of coronary artery disease. She presented to an outside emergency room with acute shortness of breath. She was found to be in heart failure. Her initial troponin level was undetectable but to follow-up troponin levels were rising. She underwent an echocardiogram that showed severe left ventricular systolic dysfunction. Although her symptoms had improved, due to the rising troponin, she is now referred for further evaluation with a cardiac catheterization. PROCEDURES PERFORMED: 1. Left heart catheterization with hemodynamic measurements. 2. Diagnostic saxman coronary angiography. 3. Drug-eluting stent placement to the proximal and mid right coronary artery with 2 stents. 3. Right subclavian artery angiography. PROCEDURE DESCRIPTION: After informed consent and in the fasting state, left heart catheterization was performed through the right radial artery utilizing a 6 [place] African system by percutaneous approach. A 5 [place] African JL 3.5 and a 5 [place] African JR4 catheter were utilized for the diagnostic portion of the procedure. There was some difficulty passing the 5 [place] African JR4 catheter into the aortic root due to to rtuosity in the right subclavian artery. The JR4 catheter was positioned in the right subclavian artery and an angiogram was performed to evaluate the course of the vessel. A 6 [place] African JR4 guide catheter was utilized for the percutaneous coronary intervention. All catheters were exchanged over a guidewire. RESULTS: HEMODYNAMICS: The opening aortic pressure was 111/61 mmHg. The left ventricular pressure was 146/10 mmHg with a left ventricular end-diastolic pressure of 35 mmHg. There was no significant pressure gradient upon pullback across the aortic valve. CORONARY ANGIOGRAPHY: Left main coronary artery: Free of significant disease. Left anterior descending coronary artery: The very apical portion of the vessel had rapid tapering and possibly some focal areas of spasm. There was a moderate sized first diagonal branch which contained a 70% stenosis proximally. Left circumflex coronary artery: Free of significant disease. Right coronary artery: Dominant and there was a 90% stenosis in the proximal s egment and a 70% stenosis in the mid segment with LILY-2 flow. This was the ischemia related vessel for the acute myocardial infarction. RIGHT SUBCLAVIAN ARTERY ANGIOGRAPHY: As above, due to tortuosity in the right subclavian artery with difficulty passing the wire into the aortic root from the right radial approach, the 5 Central African JR4 catheter was positioned in the mid portion of the right subclavian artery. An angiogram was then performed. The vessel was free of significant disease but quite tortuous. Angiogram was then used as a roadmap to successfully place the diagnostic guidewire into the aortic root. PERCUTANEOUS CORONARY INTERVENTION: Percutaneous coronary intervention was carried out on the proximal and mid right coronary artery through a 6 [place] African JR4 guide catheter. The lesion was successfully crossed with a Donde guidewire. I subsequently performed coronary angioplasty in the proximal segment with a 3 x 12 mm Trek balloon at a pressure of 10 gregory. Flow was improved. I subsequently deployed a 3.5 x 18 mm drug-eluting Xience Skypoint stent at a pressure of 16 gregory. The lesion in the midsegment then appeared more significant. I attempted to cross the stenosis in the mid segment with a 3.5 x 12 mm drug-eluting Xience Skypoint stent but the stent would not cross through the stenosis. The stent was removed intact. I subsequently performed angioplasty with the same 3 x 12 mm Trek balloon in the mid segment at a pressure of 10 gregory. I subsequently advanced the 3.5 x 12 mm drug-eluting Xience Skypoint stent into the mid segment and this was deployed at a pressure of 16 gregory. I then postdilated the distal segment of the stent previously placed in the proximal segment with a 4 x 12 mm noncompliant Trek balloon at a pressure of 16 gregory. Following stent placement, there was 0% residual stenosis with LILY-3 flow. IMPRESSION: 1. Markedly elevated left ventricular end-diastolic pressure. 2. 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 This was the ischemia related vessel for the acute myocardial infarction. 3. Status post drug-eluting stent placement to the proximal and mid right coronary artery with a 3.5 x 18 mm Xience Skypoint stent in the proximal segment postdilated with a 4 x 12 mm noncompliant balloon and a 3.5 x 12 mm Xience Skypoint stent in the mid segment with 0% residual stenosis and LILY-3 flow. 4. The patient is known to have severe left ventricular systolic dysfunction with an estimated ejection fraction of 20-25% by echocardiogram performed earlier today. 5. The right subclavian artery is tortuous but does not contain any significant angiographically evident atherosclerotic disease. Certain portions of this document may have been dictated utilizing voice recognition technology. Inherent to this technology, typographical and grammatical errors may exist. As much as I am diligent to identify and correct these mistakes, some errors may remain in the document. ANNIKA HERRERA JR, MD Jul 16, 2021 17:25
[2021-07-16] MEDS: NS IV 1000 ML 1,000 ML IV SCH (18:05)
[2021-07-16] MEDS ORDERED: ACETAMINOPHEN 325 MG TABLET ONE (20:21)
[2021-07-16] MEDS: TICAGRELOR 90 MG TABLET (BRILINTA) PO SCH (20:34)
[2021-07-16] MEDS: ACETAMINOPHEN 325 MG TABLET PO PRN (20:34)
[2021-07-16] MEDS: RT-ALBUTEROL/IPRATROPIUM 3 ML (DUONEB) VIAL INH SCH (21:57)
[2021-07-17] MEDS: ACETAMINOPHEN 325 MG TABLET PO PRN (01:36)
[2021-07-17] MEDS: NS IV 1000 ML 1,000 ML IV SCH (02:13)
[2021-07-17 03:15] VITALS: BP 103/50
[2021-07-17 05:07] LABS: BASOPHILS % (AUTO) 0 % (0-10); EOSINOPHILS # (AUTO) 0.2 10^3/uL (0.0-0.3); EOSINOPHILS % (AUTO) 3 % (0-10); HEMATOCRIT 31 % (35-52); HEMOGLOBIN 10.4 g/dL (11.5-16.0); LYMPHOCYTES # (AUTO) 2.1 10^3/uL (1.0-4.0); LYMPHOCYTES % (AUTO) 30 % (12-44); MEAN CORPUSCULAR HEMOGLOBIN 30 pg (25-34); MEAN CORPUSCULAR HGB CONC 33 g/dL (32-36); MEAN CORPUSCULAR VOLUME 90 fL (80-99); MONOCYTES # (AUTO) 0.9 10^3/uL (0.0-1.0); MONOCYTES % (AUTO) 12 % (0-12); NEUTROPHILS # (AUTO) 3.8 10^3/uL (1.8-7.8); NEUTROPHILS % (AUTO) 55 % (42-75); PLATELET COUNT 250 10^3/uL (130-400)
[2021-07-17 05:24] LABS: POTASSIUM 3.9 MMOL/L (3.6-5.0)
[2021-07-17 05:25] LABS: CALCIUM 8.6 MG/DL (8.5-10.1)
[2021-07-17 05:30] LABS: CREATININE SERUM 1.03 MG/DL (0.60-1.30)
[2021-07-17 05:32] LABS: MAGNESIUM 1.3 MG/DL (1.6-2.4)
[2021-07-17] MEDS ORDERED: POTASSIUM CL 10MEQ/50ML IVPB 50 ML IV SCH (06:00)
[2021-07-17] MEDS ORDERED: MAGNESIUM 1 GM/100 ML IVPB 100 ML IV SCH (06:00)
[2021-07-17] MEDS ORDERED: KCL 20 MEQ TAB (K-DUR) PO SCH (06:00)
--- NOTE | 2021-07-17 06:02 | Diagnostic Imaging Report ---
INDICATION: Pulmonary edema Single portable AP view of the chest is obtained. Since the study of one day earlier, there is continued cardiomegaly. Pulmonary venous congestion is improved. No overt edema, pneumothorax or definite pleural fluid is identified. IMPRESSION: Cardiomegaly with improving pulmonary venous congestion. Dictated by: Dictated on workstation # [id number]
[2021-07-17] MEDS: MAGNESIUM 1 GM/100 ML IVPB 100 ML IV SCH ×2 (06:06→06:49)
[2021-07-17] MEDS: CATHETER FLUSH 10 ML SYR IV SCH ×2 (06:06→14:02)
[2021-07-17] MEDS: RT-ALBUTEROL/IPRATROPIUM 3 ML (DUONEB) VIAL INH SCH (07:33)
[2021-07-17 07:53] VITALS: BP 105/74
[2021-07-17] MEDS ORDERED: metFORMIN XR 500 MG (GLUCOPHAGE XR) TAB PO SCH (08:00)
[2021-07-17] MEDS: TICAGRELOR 90 MG TABLET (BRILINTA) PO SCH (08:16)
[2021-07-17] MEDS ORDERED: ASPIRIN E.C. 81 MG (ECOTRIN) TAB PO SCH (09:00)
[2021-07-17] MEDS ORDERED: ASPIRIN 81 MG CHEW (CHILDREN'S ASA) PO SCH (09:00)
[2021-07-17] MEDS ORDERED: lisINopril 40 MG (PRINIVIL) TABLET PO SCH ×3 (09:00)
[2021-07-17] MEDS ORDERED: glipiZIDE 5 MG (GLUCOTROL) TAB PO SCH (09:00)
[2021-07-17] MEDS: inSUlin ASPART (NovoLOG) 1 UNIT/0.01 ML (CHARGE PER UNIT) SC SCH ×2 (10:53→15:43)
[2021-07-17 11:44] VITALS: BP 114/65
[2021-07-17] MEDS ORDERED: LISI10TA25 PO (11:53)
[2021-07-17] MEDS ORDERED: TICA90TA PO (11:53)
[2021-07-17] MEDS ORDERED: MTP25TSR PO (11:53)
[2021-07-17] MEDS ORDERED: ATOR80TA76 PO (11:53)
[2021-07-17] MEDS ORDERED: ASPI81TA64 PO (11:53)
--- NOTE | 2021-07-17 12:09 | Cardiology Progress Note ---
Subjective Date Seen by Provider: Jul 17, 2021 Time Seen by Provider: 12:04 Subjective/Events-last exam Patient resting comfortably upon entering the room. States is feeling much better. No chest pain, headache, dizziness, or shortness of breath. CXR shows a decrease in vascular congestion. Patient's only complaint is some leg cramping and a slight bump at radial artery entry site. Patient had some bleeding from the sight yesterday. Patient is going to be fitted for a life vest today. Patient is planning on establishing care with a process designer when they get back to [place]. Review of Systems HEENT: No Head Aches, No Dysphasia Pulmonary: No Dyspnea, No Cough Cardiovascular: No: Chest Pain, Palpitations, Lt Headedness Gastrointestinal: No: Nausea, Vomiting Objective-Cardiology Exam Last Set of Vital Signs Vital Signs 07/16/21 07/17/21 04:19 16:31 Temp 36.9 Pulse 61 Resp 12 B/P (MAP) 110/60 Pulse Ox 100 O2 Delivery Room Air O2 Flow Rate 6.00 I&O Intake and Output 07/17/21 00:00 Intake Total 550 ml Output Total 900 ml Balance -350 ml Intake Oral 550 ml Output Urine Total 900 ml # Voids 2 General: Alert, Oriented X3, Cooperative, No Acute Distress HEENT: Atraumatic, PERRLA Neck: Supple, No JVD Lungs: Other (slight basilar crackles on inspiration heard in left lower lobes) Heart: Regular Rate, Normal S1, Normal S2, No Murmurs Extremities: Normal Pulses, Other (bilateral peripheral edema, improvement from yesterday) Skin: No Rashes, No Breakdown Neuro: Normal Speech Psych/Mental Status: Mental Status NL, Mood NL Results Lab Laboratory Tests 07/17/21 05:00 A/P-Cardiology Admission Diagnosis Congestive heart failure non-ST segment elevation myocardial infarction Hypertension Diabetes Mellitus Hyperlipidemia Assessment/Plan Non ST-segment elevation myocardial infarction Started on aspirin and lovenox Echocardiogram shows EF of 25% with moderate mitral regurgitation Drug-eluting stent placement to the proximal and mid right coronary artery with 2 stents on heart cath yesterday Patient started on brilinta and metoprolol succinate Patient is planning on establishing with a process designer in [place] when they get home. Patient will be fitted with a life-vest before being discharged form the hospital Patient okay to go home today after receiving life vest Congestive Heart Failure chest x-ray shows improvement today Patient on 2L fluid restriction Continue medication regimen Hypertension Patient started on lisinopril and hydrazaline Appears controlled, continue to monitor Hyperlipidemia Patient started on atorvastatin Continue to monitor Diabetes Mellitus Patient currently taking insulin, metformin, glipizide, appears well controlled, managed by medical team. The patient was seen and examined by Maximo as outlined above. I also interviewed and examined the patient. Subjective: She is a pleasant 85-year-old female who is here visiting family. She normally resides in [place]. 2 weeks ago she drove from [place] to [place]. Last evening she woke up to use the bathroom and developed severe, sudden shortness of breath associated with tightness. Her daughter heard her breathing heavily and went to check on her. She thought that the symptoms could be due to acid reflux so she gave her mother a drink of Sprite. However, her chest tightness and dyspnea persisted. Her daughter then called her niece who is a physician who recommended they call 911. The patient was brought to [place] emergency room early this morning. She was felt to be in pulmonary edema but later was found to have an elevated troponin level. She was subsequently transferred to [facility] in [place], [place] for further treatment and evaluation. In the outside emergency room she was given intravenous Lasix and her shortness of breath and chest tightness resolved. She was also administered aspirin and 1 dose of enoxaparin. This afternoon her breathing and chest discomfort were still improved. However, her troponin level has risen. General: Alert. No acute distress. Well nourished and appears stated age. Eye: Extraocular movements are intact. Conjunctivae are clear. There are no xanthelasma. HENT: Normocephalic. Atraumatic. Carotid pulsations 2/2 without bruits. Neck: Jugular venous pressure does not appear elevated. No thyromegaly appreciated. Respiratory: Lungs are clear to auscultation. Respirations are non-labored. Breath sounds are equal. Symmetrical chest wall expansion. Cardiovascular: Normal rate. Regular rhythm. No murmur. No gallop. Point of maximal impulse is not appear displaced. Good pulses equal in all extremities. No edema. Gastrointestinal: Soft. Normal bowel sounds. Skin: Skin turgor is normal. There is no pallor. Musculoskeletal: No kyphosis or scoliosis appreciated. Neurologic: Alert and oriented to person, place, time. Cranial nerves 3-12 appear grossly intact. The patient has good motor tone strength in the upper and lower extremities bilaterally. Psychiatric: Cooperative. Appropriate mood & affect. Echocardiogram (07/16/2021): 1. Left ventricle: The cavity size is normal. There is moderate concentric hypertrophy. Systolic function is severely reduced. The estimated ejection fraction is 20-25%. There is severe global hypokinesis. Doppler parameters are consistent with abnormal left ventricular relaxation (grade 1 diastolic dysfunction). 2. Right ventricle: The cavity size is normal. Systolic function is mildly reduced. TAPSE 1.3 cm. 3. Mitral valve: There is moderate regurgitation. 4. Aortic valve: There is mild regurgitation. 5. 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 6. Pulmonary arteries: The pulmonary artery pressure cannot be estimated on this study due to inadequate tricuspid regurgitant envelope. Electrocardiogram: Sinus rhythm with left bundle branch block. Impression: 1. Non-ST elevation myocardial infarction. The patient appears to be a non-ST elevation myocardial infarction. She did also have an elevated D-dimer but underwent a CT angiogram of the chest that did not show any evidence of pulmonary embolism. Her symptoms are improved but the troponin level is rising. As such, I recommend further evaluation with a cardiac catheterization. I have explained the benefits and risks of the procedure to the patient and her family and all are in agreement to proceed. 2. Cardiomyopathy. Exact etiology unclear. In light of the non-ST elevation myocardial infarction, this is certainly concerning for ischemic cardiomyopathy. This does not have the normal appearance of Takotsubo cardiomyopathy although echocardiography is not the test of choice for diagnosing this condition. Nonetheless, she will be placed on the usual guideline directed medical therapy and we will proceed with the cardiac catheterization. 3. Acute heart failure with preserved ejection fraction. Her symptoms have already improved with intravenous Lasix. We will place her on the appropriate guideline directed medical therapy as tolerated by her blood pressure and renal function. 4. Essential hypertension. We will resume outpatient antihypertensive medication. 5. Mixed hyperlipidemia. Resume statin medication. Certain portions of this document may have been dictated utilizing voice recognition technology. Inherent to this technology, typographical and grammatical errors may exist. As much as I am diligent to identify and correct these mistakes, some errors may remain in the document. I saw the patient with the medical student and we reviewed his findings and plan together. I also personally interviewed and examined the patient. Subjective: Her chest tightness and shortness of breath have resolved. She denies palpitations, syncope, or ankle edema. She would like to go home today. Objective: General: Alert. No acute distress. Eye: No xanthelasma. HENT: Normocephalic. Neck: Jugular venous pressure does not appear elevated. Respiratory: Lungs are clear to auscultation. Respirations are non-labored. Breath sounds are equal. Symmetrical chest wall expansion. Cardiovascular: Normal rate. Regular rhythm. No murmur. No gallop. No edema. Gastrointestinal: Soft. Normal bowel sounds. Skin: Warm. Dry. Neurologic: Alert and oriented to person, place, time. Cranial nerves 3-11 grossly intact. Psychiatric: Cooperative. Appropriate mood & affect. Diagnosis/Problems Diagnosis/Problems (1) Non-ST elevation myocardial infarction (NSTEMI), initial care episode Status: Acute Assessment & Plan: This was due to severe stenosis of the right coronary artery that was treated with drug-eluting stents. Her symptoms have resolved. From a cardiac standpoint, she can be discharged home. (2) Cardiomyopathy Assessment & Plan: She has severe cardiomyopathy of undetermined etiology. Although she had an acute myocardial infarction involving the right coronary artery, she had severe global hypokinesis. I suspect prior to this recent event, she may have had some underlying cardiomyopathy. We have started to initiate guideline directed medical therapy with beta-lee and GORDO inhibitor. These will need to be titrated following discharge. Given her severe left ventricular systolic dysfunction, this puts her at increased risk of sudden cardiac . As such, I have ordered a LifeVest. I have already contacted his old and they will reach out to the patient and fit her at home. When she returns home to [place], she will need to find a local process designer. (3) Acute systolic heart failure Status: Acute Assessment & Plan: This is due to the severe cardiomyopathy. She is markedly improved and we have initiated guideline directed medical therapy. This will need to be titrated following discharge. (4) Mitral regurgitation Assessment & Plan: She had moderate mitral regurgitation. Some of this could be related to the acute events and may improve with the guideline directed medical therapy for the cardiomyopathy. This will also need to be followed after discharge. (5) Primary hypertension Status: Chronic Assessment & Plan: She is tolerating carvedilol and lisinopril. (6) Mixed hyperlipidemia Status: Chronic Assessment & Plan: Continue intensive dose statin medication in light of the acute myocardial infarction. Supervisory-Addendum Brief Verification & Attestation Participated in pt care: history, MDM, physical Personally performed: exam, history, MDM Care discussed with: Medical Student Procedures: n/a Results interpretation: Verified all documentation Verification and Attestation of Medical Student E/M Service A medical student performed and documented this service in my presence. I reviewed and verified all information documented by the medical student and made modifications to such information, when appropriate. I personally performed the physical exam and medical decision making. Please see my separate problem list above. Annika Fagan JR, MD, Jul 17, 2021,17:07 MAXIMO NOLASCO Jul 17, 2021 12:09 ANNIKA FAGAN JR, MD Jul 17, 2021 17:08
--- NOTE | 2021-07-17 12:24 | Discharge Summary ---
JAKOB CHA 07/17/21 1224: Diagnosis/Chief Complaint Date of Admission Jul 16, 2021 at 09:00 Date of Discharge Discharge Date: Jul 17, 2021 Admission Diagnosis Admission Diagnosis NSTEMI LBBB Discharge Diagnosis NSTEMI, LBBB, HFrEF Discharge Summary Hospital Course Hospital Course Patient is a 85yo female w/PMH of HTN, HLD, T2DM who arrived here from [facility] on 07/16. She presented with shortness of breath and tightness in her chest/neck area. After initial evaluation, her troponins trended upwards and her EKG was concerning for LBBB and NSTEMI. Anticoagulation was initiated in the ER with Lovenox. Cardiac cath was performed on afternoon of 07/16 and stent was placed. Patient was hemodynamically stable throughout her hospital stay. She was started on Aspirin, Ticagrelor, Propranolol, Lipitor and Lisinopril. She will be fitted for a LifeVest before leaving here and will establish care with a senior software project manager in home [facility] to manage her heart failure. Patient was medically stable on discharge. Labs Laboratory Tests 07/16/21 04:32: Neutrophils (%) (Auto) 41L, Lymphocytes # (Auto) 4.1H, Eosinophils # (Auto) 0.4H , Prothrombin Time 11.8L, D-Dimer 0.65H, Anion Gap 16H, Blood Urea Nitrogen 21H, Glucose Level 234H, Magnesium Level 1.2L, Pro-B-Type Natriuretic Peptide 897.8H 07/16/21 06:27: Troponin I 0.51*H 07/16/21 07:28: 07/16/21 11:07: Troponin I 1.296*H, Myoglobin 127.3H 07/16/21 11:34: Glucometer 142H 07/16/21 15:33: Glucometer 148H 07/16/21 20:10: Glucometer 123H 07/17/21 04:58: Glucometer 170H 07/17/21 05:00: Red Blood Count 3.48L, Hemoglobin 10.4L, Hematocrit 31L, Chloride Level 108H, Carbon Dioxide Level 19L, Glucose Level 187H, Magnesium Level 1.3L, HDL Cholesterol 38L 07/17/21 10:46: Glucometer 137H Laboratory Tests 07/16/21 15:33: Glucometer 148H 07/16/21 20:10: Glucometer 123H 07/17/21 04:58: Glucometer 170H 07/17/21 05:00: White Blood Count 7.0, Red Blood Count 3.48L, Hemoglobin 10.4L, Hematocrit 31L, Mean Corpuscular Volume 90, Mean Corpuscular Hemoglobin 30, Mean Corpuscular Hemoglobin Concent 33, Red Cell Distribution Width 13.4, Platelet Count 250, Mean Platelet Volume 10.0, Immature Granulocyte % (Auto) 0, Neutrophils (%) (Auto) 55, Lymphocytes (%) (Auto) 30, Monocytes (%) (Auto) 12, Eosinophils (%) (Auto) 3, Basophils (%) (Auto) 0, Neutrophils # (Auto) 3.8, Lymphocytes # (Auto) 2.1, Monocytes # (Auto) 0.9, Eosinophils # (Auto) 0.2, Basophils # (Auto) 0.0, Immature Granulocyte # (Auto) 0.0, Sodium Level 139, Potassium Level 3.9, Chloride Level 108H, Carbon Dioxide Level 19L, Anion Gap 12, Blood Urea Nitrogen 17, Creatinine 1.03, Estimat Glomerular Filtration Rate 53, BUN/Creatinine Ratio 17, Glucose Level 187H, Calcium Level 8.6, Magnesium Level 1.3L, Triglycerides Level 128, Cholesterol Level 113, LDL Cholesterol Direct 61, VLDL Cholesterol 26, HDL Cholesterol 38L 07/17/21 10:46: Glucometer 137H Active Scripts Active Children's Aspirin (Aspirin) 81 Mg Tab.chew 81 Mg PO DAILY 30 Days Lisinopril 10 Mg Tablet 10 Mg PO DAILY 30 Days Metoprolol Succinate 25 Mg Tab.er.24h 12.5 Mg PO DAILY 30 Days Atorvastatin Calcium 80 Mg Tablet 80 Mg PO HS 30 Days Brilinta (Ticagrelor) 90 Mg Tablet 90 Mg PO BID 30 Days Reported Vitamin D3 (Cholecalciferol (Vitamin D3)) 25 Mcg Tablet 25 Mcg PO DAILY Metformin HCl ER (Metformin HCl) 500 Mg Tab.er.24h 500 Mg PO BID WITH MEALS Glipizide 5 Mg Tablet 2.5 Mg PO DAILY TAKES OF A 5MG Procedures None. Consultations Cardiology Discharge Physical Examination Allergies: Coded Allergies: No Known Drug Allergies (Unverified , 07/16/21) Vitals & I&Os Vital Signs Date Time Temp Pulse Resp B/P (MAP) Pulse Ox O2 Delivery O2 Flow Rate FiO2 07/17/21 11:44 36.1 68 22 114/65 (81) 99 Room Air 07/16/21 11:39 21 07/16/21 04:19 6.00 General Appearance: Alert, Oriented X3, No Acute Distress HEENT: PERRLA, EOMI Cardiovascular: Regular Rate Abdominal: Normal Bowel Sounds, Soft, No Tenderness Extremities: Normal Pulses, No Tenderness/Swelling Neuro: Normal Speech Psych/Mental Status: Mental Status NL Discharge Home Medications Reviewed and agree with Discharge Medication list on patient's Discharge Instruction sheet Instructions to Patient/Family Please see electronic discharge instructions given to patient. Clinical Quality Measures Admission Status Admission Dx NSTEMI, LBBB AMI/AHF: Ejection Fraction: <40 (VINH/ARB Indicated) D/C Medications Addressed: Vinh inhibitors, Beta lee D/C Inst. for HF given: Yes DORYS YUSUF MD 07/17/21 2215: Diagnosis/Chief Complaint Discharge Time: 16:30 Discharge Diagnosis NSTEMI, CAD, Ischemic cardiomyopathy, Acute HFrEF Discharge Summary Procedures Left heart catheterization with coronary stenting Discharge Physical Examination Allergies: Coded Allergies: No Known Drug Allergies (Unverified , 07/16/21) Supervisory-Addendum Brief Verification & Attestation Participated in pt care: history, MDM, physical Personally performed: exam, history, MDM, supervision of care Care discussed with: Medical Student Procedures: n/a Results interpretation: Verified all documentation A medical student performed and documented this service in my presence. I reviewed and verified all information documented by the medical student and made modifications to such information, when appropriate. I personally performed the physical exam and medical decision making. JAKOB CHA Jul 17, 2021 12:24 DORYS YUSUF MD Jul 17, 2021 22:15
[2021-07-17 15:40] VITALS: BP 100/55
[2021-07-17 16:31] VITALS: BP 110/60
[2021-07-17] MEDS ORDERED: ENOXAPARIN 40 MG/0.4 ML (LOVENOX) SYR SC SCH (20:00)
== END 2021-07-17 16:35 | disposition home or self-care (01) | DRG 246 ==
LOC: ER FS 04:26 → CSD 09:00
PROVIDERS: ADMIT Internal Medicine; ATTEND Internal Medicine
PROC: 4A023N7 Measurement of Cardiac Sampling and Pressure, Left Heart, Percutaneous Approach (ICD-10-PCS; principal; 2021-07-16)
PROC: 027035Z Dilation of Coronary Artery, One Artery with Two Drug-eluting Intraluminal Devices, Percutaneous Approach (ICD-10-PCS; 2021-07-16)
PROC: B2111ZZ Fluoroscopy of Multiple Coronary Arteries using Low Osmolar Contrast (ICD-10-PCS; 2021-07-16)
PROC: B2151ZZ Fluoroscopy of Left Heart using Low Osmolar Contrast (ICD-10-PCS; 2021-07-16)
DX: I21.4 Non-ST elevation (NSTEMI) myocardial infarction (principal); I50.21 Acute systolic (congestive) heart failure; I25.10 Atherosclerotic heart disease of native coronary artery without angina pectoris; I25.5 Ischemic cardiomyopathy; I44.7 Left bundle-branch block, unspecified; I11.0 Hypertensive heart disease with heart failure; E11.9 Type 2 diabetes mellitus without complications; Z79.84 Long term (current) use of oral hypoglycemic drugs; Z79.899 Other long term (current) drug therapy; E66.9 Obesity, unspecified; E88.81 Metabolic syndrome and other insulin resistance; E78.2 Mixed hyperlipidemia; E78.00 Pure hypercholesterolemia, unspecified; G89.29 Other chronic pain; M54.9 Dorsalgia, unspecified; E83.42 Hypomagnesemia; R06.00 Dyspnea, unspecified; I34.0 Nonrheumatic mitral (valve) insufficiency; Z68.30 Body mass index [BMI] 30.0-30.9, adult
CPT/HCPCS: 36415; 71045; 71275; 80048; 80053; 80061; 81000; 82947; 83735; 83874; 83880; 84484; 85025; 85027; 85379; 85610; 85730; 93005; 93041; 93306; 93970; 94640; Q9967